=== PATIENT | male | born 1940 | race Caucasian/White ===

== ENCOUNTER 2017-07-04 11:00 | Emergency (ER) | payer OTHER ==
[2017-07-04 11:21] VITALS: TEMP 97.5
[2017-07-04] MEDS ORDERED: HYDROcodone 7.5MG/APAP 325MG 1 EA TAB PO ONE ×2 (11:36→11:43)
--- NOTE | 2017-07-04 12:23 | RAD ---
EXAM DESCRIPTION: Foot,Left 3 Views CLINICAL HISTORY: trauma COMPARISON: None. IMPRESSION: 3 views of the left foot show diffuse osteopenia of the osseous structures. There is a mildly displaced spiral fracture of the mid to distal fifth metatarsal with mild medial displacement of the distal fracture fragment. Mild hallux valgus deformity of the first metatarsophalangeal joint is seen with mild osteoarthritic changes. Large plantar enthesophyte of the calcaneus is seen. Electronically signed by: Oliver Hall MD 07/04/2017 12:22 PM [facility]
--- NOTE | 2017-07-04 12:24 | RAD ---
EXAM DESCRIPTION: Pelvis CLINICAL HISTORY: trauma COMPARISON: None. IMPRESSION: AP neutral and frog-leg lateral views of the pelvis show no evidence of acute fracture, focal bone destruction, or joint dislocation. 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 Sacrum is not well visualized secondary to overlying bowel gas. Disc degenerative changes of the lower lumbar spine are seen. Moderate vascular calcifications are defined. Electronically signed by: Oliver Hall MD 07/04/2017 12:23 PM [employer]
--- NOTE | 2017-07-04 12:39 | ED.PDOC ---
History of Present Illness - General Chief Complaint: Trauma Stated Complaint: left hip and foot pain Time Seen by Provider: 07/04/17 11:12 Source: patient Exam Limitations: no limitations - History of Present Illness Initial Comments: PT PRESENTS TO THE ED WITH COMPLAINT OF LEFT FOOT PAIN AND LEFT PELVIC PAIN AFTER SLIPPING AND FALLING DOWN 15 STAIRS ON HIS BACK. PT DENIES HEAD INJURY, BACK INJURY OR LOC. Severity: moderate Improving Factors: immobilization Worsening Factors: movement Associated Symptoms: denies symptoms Allergies/Adverse Reactions: Allergies NO KNOWN ALLERGY Allergy (Verified 07/04/17 11:43) Home Medications: Ambulatory Orders Acetaminophen W/ Codeine [Tylenol W/ CODEINE #3] 1 ea PO Q4HR PRN #24 07/04/17 Review of Systems - Review of Systems Constitutional: Denies: chills, fever EENTM: Denies: ear pain, nose congestion Respiratory: Denies: cough, short of breath Cardiology: Denies: chest pain, palpitations, syncope Gastrointestinal/Abdominal: Denies: nausea, vomiting Musculoskeletal: Denies: back pain, muscle stiffness Skin: Denies: change in color, lesions Neurological: Denies: headache, numbness Past Medical History (General) - Patient Medical History Hx Seizures: No Hx Stroke: No Hx Asthma: No Hx Cardiac Disorders: Yes Hx Congestive Heart Failure: No Hx Pacemaker: No Hx Hypertension: Yes Hx Diabetes: No Surgical History: other Family Medical History - Family History Mother Family History: Unknown Physical Exam - Physical Exam General Appearance: Alert, No apparent distress, Well Developed, Well Groomed, Well Hydrated Ears, Nose, Throat: hearing grossly normal Neck: non-tender, full range of motion Respiratory: chest non-tender, lungs clear, normal breath sounds Cardiovascular/Chest: regular rate, rhythm, no edema Gastrointestinal/Abdominal: non tender, soft Back Exam: normal inspection, no CVA tenderness, no vertebral tenderness Extremity: pelvis stable - MILD TENDERNESS TO LEFT PARA SACRAL REGION., other - TENDERNESS WITH MILD SWELLING TO THE MID 5TH METATARSAL ON L FOOT. Neurologic: alert, normal mood/affect, oriented x 3 Skin Exam: normal color, warm/dry Progress - Progress Progress: 07/04/17 12:42 PT REPORTS IMPROVEMENT IN PAIN AFTER PO NORCO. XRAY FINDINGS DISCUSSED. - EKG/XRAY/CT XRAY: L FOOT- MINIMALLY DISPLACED SPIRAL FX TO MID 5TH METATARSAL - NO ACUTE FX Departure - Departure Clinical Impression: Contusion, hip Metatarsal bone fracture Qualifiers: Encounter type: initial encounter Metatarsal bone: fifth Fracture type: closed Fracture alignment: displaced Laterality: left Qualified Code(s): S92.352A - Displaced fracture of fifth metatarsal bone, left foot, initial encounter for closed fracture Time of Disposition: 12:45 Disposition: Discharge to Home or Self Care Condition: Fair Departure Forms: ED Discharge - Pt. Copy, Patient Portal Self Enrollment Instructions: DI for Foot Fracture, DI for Trauma Referrals: Jaylon Sun MD [Primary Care Provider] - 1-2 Weeks Jayy Ramsey MD [Active Staff] - 1-5 Days Prescriptions: Acetaminophen W/ Codeine [Tylenol W/ CODEINE #3] 1 ea PO Q4HR PRN #24 PRN Reason: Pain Home Medications: Ambulatory Orders Acetaminophen W/ Codeine [Tylenol W/ CODEINE #3] 1 ea PO Q4HR PRN #24 07/04/17
[2017-07-04 12:46] VITALS: O2SAT 96
[2017-07-04 13:51] VITALS: BP 146/91
== END 2017-07-04 13:48 | disposition home or self-care (01) ==
LOC: ER 11:00
DX: S92.352A Displaced fracture of fifth metatarsal bone, left foot, initial encounter for closed fracture (principal); S70.00XA Contusion of unspecified hip, initial encounter; I10 Essential (primary) hypertension; W10.9XXA Fall (on) (from) unspecified stairs and steps, initial encounter; Y92.9 Unspecified place or not applicable

== ENCOUNTER → 2018-02-07 | Outpatient (CLI) | payer OTHER ==
--- NOTE | 2018-02-08 08:25 | US ---
EXAM DESCRIPTION: Carotid Duplex: ULTRASOUND. CLINICAL HISTORY: [place] COMPARISON: Ultrasound carotid duplex 09/03/2014. TECHNIQUE: Transcutaneous scanning utilizing ling-scale and Doppler modes to evaluate the bilateral carotid systems and vertebral arteries. Percentage of diameter of stenosis or no stenosis recorded will be based upon NASCET criteria. FINDINGS: Peak systolic/end diastolic (CM-Sec) CCA Right 142/12 Left 154/24. ICA Right proximal 71/16, mid 67/16. Left proximal 65/16, mid 63/16. Vertebral Right 19/0 Left not detected. ECA (PS Only) Right 101 left 59. ICA/CCA peak systolic ratio: Right 0.5 Left 0.4 ICA/CCA end diastolic ratio: Right 1.4 Left 0.7 Vertebral arteries: Right vertebral antegrade flow. The vertebral artery was not visualized. Comments: Bilateral calcified plaques distal common carotid arteries and carotid bifurcations. Right carotid spectral broadening in the bifurcation and proximal ICA. Area stenosis) in CCA 38%; diameter stenosis 40%. Area stenosis CCA bulb 24%; diameter stenosis 30%. Left mid CCA area stenosis 25%; diameter stenosis 36%. Left CCA bulb area stenosis 46%; diameter stenosis 53%. IMPRESSION: 1. Doppler evaluation of the bilateral carotid systems and right vertebral arteries shows no hemodynamically significant stenoses. The left vertebral artery was not visualized. 2. No significant amount of plaque seen in the carotid arteries bilaterally. Right vertebral arteries showed antegrade-cephalad flow. Electronically signed by: Juan Lopez MD 02/08/2018 8:24 AM CDT
== END ==
LOC: US 10:23
PROVIDERS: ATTEND Internal Medicine Interventional Cardiology
DX: R09.89 Other specified symptoms and signs involving the circulatory and respiratory systems (principal)

== ENCOUNTER 2018-10-21 05:44 | Day surgery (SDC) | payer MEDICARE, OTHER ==
[2018-10-21] MEDS ORDERED: TROP 1%/CYCLOPEN 1%/PHENYL 2% DROPS OPHTH ONE (05:45)
[2018-10-21] MEDS ORDERED: MIDAZOLAM INJ 2 MG/2 ML VIAL ONE (07:00)
[2018-10-21] MEDS ORDERED: PROPARACAINE 0.5% OPHTH SOL 15 ML BTTL LEFT_EYE ONE (09:20)
[2018-10-21] MEDS ORDERED: LIDOCAINE 1% 2 ML VIAL INJ ONE (09:27)
[2018-10-21] MEDS ORDERED: TOBRAMYCIN SULF 0.3 % OPHT SOL 1 DROP LEFT_EYE ONE (09:40)
[2018-10-21] MEDS ORDERED: MOXIFLOXACIN HCL (OPHTH) 1 DROP DROPS LEFT_EYE ONE (09:40)
[2018-10-21] MEDS ORDERED: DEXAMETHASONE 0.1% OPHTH SOL 1 DROP LEFT_EYE ONE (09:40)
[2018-10-21] MEDS ORDERED: BRIMONIDINE 0.2% OPHTH DROPS LEFT_EYE ONE (09:40)
== END 2018-10-21 10:27 | disposition home or self-care (01) ==
LOC: AMB 05:44
PROVIDERS: ATTEND Ophthalmology
DX: H25.12 Age-related nuclear cataract, left eye (principal); I10 Essential (primary) hypertension; I25.10 Atherosclerotic heart disease of native coronary artery without angina pectoris; I25.2 Old myocardial infarction; J44.9 Chronic obstructive pulmonary disease, unspecified; F17.210 Nicotine dependence, cigarettes, uncomplicated; Z79.82 Long term (current) use of aspirin; Z79.899 Other long term (current) drug therapy
CPT/HCPCS: 00142; 66984; J2250

== ENCOUNTER 2018-11-04 05:28 | Day surgery (SDC) | payer MEDICARE, OTHER ==
[2018-11-04] MEDS ORDERED: MOXIFLOXACIN HCL (OPHTH) 1 DROP DROPS ONE (05:44)
[2018-11-04] MEDS ORDERED: TROP 1%/CYCLOPEN 1%/PHENYL 2% DROPS ONE (05:44)
[2018-11-04] MEDS ORDERED: PROPARACAINE 0.5% OPHTH SOL 15 ML BTTL ONE (05:44)
[2018-11-04] MEDS ORDERED: MIDAZOLAM INJ 2 MG/2 ML VIAL ONE (06:42)
[2018-11-04] MEDS ORDERED: fentaNYL CITRATE INJ 50 MCG/ML AMP ONE (06:42)
[2018-11-04] MEDS ORDERED: PROPARACAINE 0.5% OPHTH SOL 15 ML BTTL RIGHT_EYE ONE (09:04)
[2018-11-04] MEDS ORDERED: LIDOCAINE 1% 2 ML VIAL INJ ONE (09:18)
[2018-11-04] MEDS ORDERED: BRIMONIDINE 0.2% OPHTH DROPS RIGHT_EYE ONE (09:30)
[2018-11-04] MEDS ORDERED: DEXAMETHASONE 0.1% OPHTH SOL 1 DROP RIGHT_EYE ONE (09:30)
[2018-11-04] MEDS ORDERED: TOBRAMYCIN SULF 0.3 % OPHT SOL 1 DROP RIGHT_EYE ONE (09:30)
== END 2018-11-04 10:25 | disposition home or self-care (01) ==
LOC: AMB 05:28
PROVIDERS: ATTEND Ophthalmology
DX: H25.11 Age-related nuclear cataract, right eye (principal); I10 Essential (primary) hypertension; I25.10 Atherosclerotic heart disease of native coronary artery without angina pectoris; F17.210 Nicotine dependence, cigarettes, uncomplicated; Z79.82 Long term (current) use of aspirin; Z79.02 Long term (current) use of antithrombotics/antiplatelets; Z79.899 Other long term (current) drug therapy
CPT/HCPCS: 00142; 66984; J2250; J3010

== ENCOUNTER 2020-05-24 05:09 | Day surgery (SDC) | payer MEDICARE, OTHER ==
[2020-05-24] MEDS ORDERED: MOXIFLOXACIN HCL (OPHTH) 1 DROP DROPS ONE (05:44)
[2020-05-24] MEDS ORDERED: PROPARACAINE 0.5% OPHTH SOL 15 ML BTTL ONE (05:45)
[2020-05-24] MEDS ORDERED: TROP1%/CYCLOPEN 1%/PHENYL 2.5% DROPS ONE (05:45)
== END 2020-05-24 07:20 | disposition home or self-care (01) ==
LOC: AMB 05:09
PROVIDERS: ATTEND Ophthalmology
DX: H26.493 Other secondary cataract, bilateral (principal); I10 Essential (primary) hypertension; Z79.899 Other long term (current) drug therapy

== ENCOUNTER → 2020-09-08 | Outpatient (CLI) | payer MEDICARE, OTHER | LOC: GMAE 11:04 | PROVIDERS: ATTEND Family Medicine | DX: Z12.5 Encounter for screening for malignant neoplasm of prostate (principal); I10 Essential (primary) hypertension; Z79.899 Other long term (current) drug therapy | CPT/HCPCS: 84443; G0103 ==